=== PATIENT | female | born 1950 | race Caucasian/White ===

== ENCOUNTER 2017-05-07 07:17 | Emergency (ER) | payer MEDICARE ==
[~2017-05-07] VITALS: Ht 172.7 cm; Wt 71.0 kg
[2017-05-07 07:19] VITALS: BP 196/78; PULSE 84; RESP 16; TEMP 98.3; O2SAT 98
[2017-05-07 07:41] VITALS: BP_SYST 136; BP_SYST 145; BP_DIAS 66; BP_DIAS 73; RESP 12; RESP 14; RESP 18
[2017-05-07] MEDS ORDERED: CBD (07:46)
[2017-05-07] MEDS ORDERED: IMIP10 PO (07:46)
[2017-05-07] MEDS ORDERED: DULO1CAP2 PO (07:46)
[2017-05-07] MEDS ORDERED: QUIN5TAB6 PO (07:46)
[2017-05-07] MEDS ORDERED: SODIUM CHLOR 0.9% 1000 ML INJ 1,000 ML IV ONE (08:03)
[2017-05-07] MEDS ORDERED: ONDANSETRON HCL 4 MG/2 ML VIAL IVP ONE (08:15)
[2017-05-07] MEDS ORDERED: SODIUM CHLORIDE 0.9% FLUSH 10 ML FLUSH IVF PRN (08:15)
[2017-05-07] MEDS ORDERED: MECLIZINE HCL 25 MG TAB PO ONE (08:15)
[2017-05-07 08:52] LABS: BACTERIA, URINE RARE /hpf; BILIRUBIN, URINE NEG (NEG); BLOOD, URINE TRACE (NEG); GLUCOSE,URINE NEG (NEG); KETONE, URINE NEG (NEG); MUCUS URINE MOD /lpf (OCC); NITRITE,URINE NEG (NEG); SQUAMOUS EPITHELIAL CELL URINE 1 /hpf (0-5); URINE COLOR YELLOW (YELLW/STRAW); URINE LEUKOCYTE ESTERASE LARGE (NEG)
--- NOTE | 2017-05-07 08:55 | PD ---
HPI Chief Complaint: Medical Clearance Time Seen by Provider: 07:54 Travel History International Travel<30 days: No Contact w/Intl Traveler<30days: No Traveled to known affect area: No History of Present Illness HPI Patient is a 67 year old female who comes in complaining of dizziness. She says that she had an episode on when she was on a ladder in her RV. She says that she laid down and felt better. She says it happened again Sunday and Sunday. She says that today she woke and and "just didn't feel well." She says she can't explain why she wasn't feeling well, she just wasn't. She says currently, laying in the stretcher, she feels better. She says she has not noticed anything that makes her symptoms worse or better. She has not taken anything for her symptoms. She denies chest pain or SOB. She says that she took her blood pressure during these events and at one point it was low, but today it was high, 170/90. She says she was treated for a sinus infection by urgent care 2 weeks ago. She denies head injury or fevers. Severity is mild to moderate. PFSH Past Medical History Cardiovascular Problems: Yes Fibromyalgia: Yes Hypertension: Yes ?: Not Tubal Ligation: Yes Past Surgical History Gynecologic Surgery: Yes Social History Alcohol Use: Yes (socially ) Tobacco Use: No Substance Use: No Allergies-Medications (Allergen,Severity, Reaction): Coded Allergies: penicillin G (Verified Allergy, Intermediate, Rash, 05/07/17) Reported Meds & Prescriptions Reported Meds & Active Scripts Active Reported [Cbd ] Duloxetine DR (Duloxetine HCl) 30 Mg Capdr 30 Mg PO DAILY Imipramine HCL (Imipramine HCl) 10 Mg Tab 50 Mg PO HS Quinapril (Quinapril HCl) 5 Mg Tab 40 Mg PO BID Review of Systems Except as stated in HPI: all other systems reviewed are Neg General / Constitutional: No: Fever, Chills Eyes: No: Blurred Vision HENT: Positive: Lightheadedness, No: Headaches Cardiovascular: No: Chest Pain or Discomfort Respiratory: No: Shortness of Breath Gastrointestinal: Positive: Nausea, No: Vomiting, Abdominal Pain Genitourinary: No: Dysuria Musculoskeletal: No: Myalgias, Edema Skin: No Rash, No Change in Pigmentation Neurologic: Positive: Dizziness, No: Weakness Physical Exam Narrative GENERAL: Awake and alert, in no acute distress. SKIN: Focused skin assessment warm/dry. No wounds or signs of infection. HEAD: Atraumatic. Normocephalic. EYES: Pupils equal and round and reactive. No scleral icterus. EOMI. ENT: Mucous membranes pink and moist. NECK: Trachea midline. No JVD. CARDIOVASCULAR: Regular rate and rhythm. No murmur appreciated. RESPIRATORY: No accessory muscle use. Clear to auscultation. Breath sounds equal bilaterally. GASTROINTESTINAL: Abdomen soft, non-tender, nondistended. MUSCULOSKELETAL: No obvious deformities. No clubbing. No cyanosis. No edema. NEUROLOGICAL: Awake and alert. No obvious cranial nerve deficits. Motor grossly within normal limits. Normal speech. Normal cerebellar function. PSYCHIATRIC: Appropriate mood and affect; insight and judgment normal. Data Data Last Documented VS Vital Signs Date Time Temp Pulse Resp B/P (MAP) Pulse Ox O2 Delivery O2 Flow Rate FiO2 05/07/17 08:22 (89) 05/07/17 07:41 70 14 71 12 75 18 05/07/17 07:19 98.3 98 Orders Orders Complete Blood Count With Diff (05/07/17 08:03) Comprehensive Metabolic Panel (05/07/17 08:03) Troponin I (05/07/17 08:03) Act Partial Throm Time (Ptt) (05/07/17 08:03) Prothrombin Time / Inr (Pt) (05/07/17 08:03) Urinalysis - C+S If Indicated (05/07/17 08:03) Chest, Single Ap (05/07/17 08:03) Ct Brain W/O Iv Contrast(Rout) (05/07/17 08:03) Ecg Monitoring (05/07/17 08:03) Iv Access Insert/Monitor (05/07/17 08:03) Oximetry (05/07/17 08:03) Meclizine (Antivert) (05/07/17 08:15) Ondansetron Inj (Zofran Inj) (05/07/17 08:15) Sodium Chloride 0.9% Flush (Ns Flush) (05/07/17 08:15) Sodium Chlor 0.9% 1000 Ml Inj (Ns 1000 M (05/07/17 08:03) Urine Culture (05/07/17 08:25) Labs Laboratory Tests Test 05/07/17 08:20 05/07/17 08:25 White Blood Count 6.2 TH/MM3 Red Blood Count 4.29 MIL/MM3 Hemoglobin 13.8 GM/DL Hematocrit 39.1 % Mean Corpuscular Volume 91.0 FL Mean Corpuscular Hemoglobin 32.1 PG Mean Corpuscular Hemoglobin Concent 35.3 % Red Cell Distribution Width 12.8 % Platelet Count 247 TH/MM3 Mean Platelet Volume 7.2 FL Neutrophils (%) (Auto) 53.3 % Lymphocytes (%) (Auto) 37.3 % Monocytes (%) (Auto) 7.4 % Eosinophils (%) (Auto) 1.3 % Basophils (%) (Auto) 0.7 % Neutrophils # (Auto) 3.3 TH/MM3 Lymphocytes # (Auto) 2.3 TH/MM3 Monocytes # (Auto) 0.5 TH/MM3 Eosinophils # (Auto) 0.1 TH/MM3 Basophils # (Auto) 0.0 TH/MM3 CBC Comment DIFF FINAL Differential Comment Prothrombin Time 10.1 SEC Prothromb Time International Ratio 1.0 RATIO Activated Partial Thromboplast Time 24.0 SEC Blood Urea Nitrogen 29 MG/DL Creatinine 0.81 MG/DL Random Glucose 108 MG/DL Total Protein 6.6 GM/DL Albumin 3.5 GM/DL Calcium Level 8.9 MG/DL Alkaline Phosphatase 70 U/L Aspartate Amino Transf (AST/SGOT) 18 U/L Alanine Aminotransferase (ALT/SGPT) 22 U/L Total Bilirubin 0.3 MG/DL Sodium Level 142 MEQ/L Potassium Level 4.0 MEQ/L Chloride Level 109 MEQ/L Carbon Dioxide Level 25.3 MEQ/L Anion Gap 8 MEQ/L Estimat Glomerular Filtration Rate 70 ML/MIN Troponin I LESS THAN 0.02 NG/ML Urine Color YELLOW Urine Turbidity CLEAR Urine pH 6.0 Urine Specific [place] 1.015 Urine Protein NEG mg/dL Urine Glucose (UA) NEG mg/dL Urine Ketones NEG mg/dL Urine Occult Blood TRACE Urine Nitrite NEG Urine Bilirubin NEG Urine Urobilinogen LESS THAN 2.0 MG/DL Urine Leukocyte Esterase LARGE Urine RBC 1 /hpf Urine WBC 13 /hpf Urine Squamous Epithelial Cells 1 /hpf Urine Bacteria RARE /hpf Urine Mucus MOD /lpf Microscopic Urinalysis Comment CULTURE INDICATED MDM Medical Decision Making Medical Screen Exam Complete: Yes Emergency Medical Condition: Yes Interpretation(s) ECG shows NSR at 72, no ST elevation or depression, normal intervals Differential Diagnosis dehydration vs electrolyte abnormalities vs UTI vs vertigo Narrative Course Patient is a 67 year old female who comes in complaining of dizziness and "not feeling well." Exam shows no neurologic abnormalities. IV established, labs sent. Labs show evidence of dehydration with a BUN of 29 and Cr of 0.81. Urinalysis is positive for UTI. Patient given IVF, Zofran, Meclizine. She reports feeling better. CXR and head CT show no acute abnormalities. Last [address] 05/07/17802 Signed Impressions: Service Date/Time: Sunday, May 07, 2017 08:35 - CONCLUSION: 1. Negative noncontrast CT brain. Akash Mason MD Chest X-Ray 05/07/17802 Signed Impressions: Service Date/Time: Sunday, May 07, 2017 08:18 - CONCLUSION: The lungs are clear. Akash Mason MD Patient advised to increase her water intake. Given a prescription for Macrobid. Advised to follow up with a primary doctor. Advised to return to the ED as needed for any worsening symptoms. Diagnosis Primary Impression: UTI (urinary tract infection) Qualified Codes: N30.00 - Acute cystitis without hematuria Additional Impressions: Dehydration Dizziness Patient Instructions: Dizziness (ED), General Instructions, Urinary Tract Infection in Women (ED) Additional Instructions: Increase your water intake. Take all of your antibiotic. Follow-up with a primary care doctor. Return to the ED as needed for any worsening symptoms. Scripts Nitrofurantoin Monohydrate Macrocrystals (Macrobid) 100 Mg Capsule 100 MG PO BID for Infection for 5 Days, #10 CAP 0 Refills Prov: Jaye Wilburn MD 05/07/17 Disposition: 01 DISCHARGE HOME Condition: Stable Jaye Wilburn MD May 07, 2017 08:55
[2017-05-07 08:56] LABS: AUTOMATED NEUTROPHIL # 3.3 TH/MM3 (1.8-7.7); BASOPHIL % 0.7 % (0.0-2.0); EOSINOPHIL # 0.1 TH/MM3 (0-0.4); EOSINOPHIL % 1.3 % (0.0-4.0); HEMATOCRIT 39.1 % (35.0-46.0); HEMOGLOBIN 13.8 GM/DL (11.6-15.3); LYMPH % 37.3 % (9.0-44.0); LYMPHOCYTE # 2.3 TH/MM3 (1.0-4.8); MEAN CORPUSCULAR HEMOGLOBIN 32.1 PG (27.0-34.0); MEAN CORPUSCULAR HGB CONC 35.3 % (32.0-36.0); MEAN PLATELET VOLUME 7.2 FL (7.0-11.0); MONO % 7.4 % (0.0-8.0); MONOCYTE # 0.5 TH/MM3 (0-0.9); NEUT % 53.3 % (16.0-70.0); PLATELET COUNT 247 TH/MM3 (150-450); RED BLOOD COUNT 4.29 MIL/MM3 (4.00-5.30); RED CELL DISTRIBUTION WIDTH 12.8 % (11.6-17.2); WHITE BLOOD COUNT 6.2 TH/MM3 (4.0-11.0)
[2017-05-07 09:02] LABS: PROTHROMBIN TIME - PATIENT 10.1 SEC (9.8-11.6)
[2017-05-07 09:04] LABS: ALBUMIN 3.5 GM/DL (3.4-5.0); AST (GOT) 18 U/L (15-37); BICARBONATE 25.3 MEQ/L (21.0-32.0); BLOOD UREA NITROGEN 29 MG/DL (7-18); CALCIUM 8.9 MG/DL (8.5-10.1); CHLORIDE 109 MEQ/L (98-107); CREATININE 0.81 MG/DL (0.50-1.00); GLOMERULAR FILTRATION RATE 70 ML/MIN (>89); GLUCOSE,RANDOM 108 MG/DL (74-106); SODIUM (NA) 142 MEQ/L (136-145)
[2017-05-07 09:05] LABS: ALT (GPT) 22 U/L (10-53)
[2017-05-07 09:09] LABS: ALKALINE PHOSPHATASE 70 U/L (45-117); TOTAL BILIRUBIN ADULT 0.3 MG/DL (0.2-1.0); TOTAL PROTEIN 6.6 GM/DL (6.4-8.2); TROPONIN I LESS THAN 0.02 NG/ML (0.02-0.05)
--- NOTE | 2017-05-07 09:10 | RADRPT ---
EXAM DATE/TIME: 05/07/2017 08:18 [facility] COMPARISON: No previous studies available for comparison. INDICATIONS : Palpitations, vertigo, no chest pain, blood pressure problems MEDICAL HISTORY : Hypertension. SURGICAL HISTORY : None. ENCOUNTER: Initial ACUITY: 1 day PAIN SCORE: 0/10 LOCATION: Bilateral chest FINDINGS: A single view of the chest demonstrates the lungs to be symmetrically aerated without evidence of mas s, infiltrate or effusion. The cardiomediastinal contours are unremarkable. Osseous structures are intact. CONCLUSION: The lungs are clear. Akash Mason MD on May 07, 2017 at 9:09 Board Certified Radiologist. This report was verified electronically.
--- NOTE | 2017-05-07 09:12 | RADRPT ---
EXAM DATE/TIME: 05/07/2017 08:35 [facility] COMPARISON: No previous studies available for comparison. INDICATIONS : Dizziness RADIATION DOSE: 35.01 CTDIvol (mGy) MEDICAL HISTORY : Cardiovascular disease. Hypertension. SURGICAL HISTORY : None. ENCOUNTER: Initial ACUITY: 1 day PAIN SCALE: 2/10 LOCATION: Bilateral cranial TECHNIQUE: Multiple contiguous axial images were obtained of the head. Using automated exposure control and adj ustment of the mA and/or kV according to patient size, radiation dose was kept as low as reasonably a chievable to obtain optimal diagnostic quality images. DICOM format image data is available electro nically for review and comparison. FINDINGS: CEREBRUM: The ventricles are normal for age. No evidence of midline shift, mass lesion, hemorrhage or acute in farction. No extra-axial fluid collections are seen. POSTERIOR FOSSA: The cerebellum and brainstem are intact. The 4th ventricle is midline. The cerebellopontine angle i s unremarkable. EXTRACRANIAL: The visualized portion of the orbits is intact. SKULL: The calvaria is intact. No evidence of skull fracture. CONCLUSION: 1. Negative noncontrast CT brain. Akash Mason MD on May 07, 2017 at 9:09 Board Certified Radiologist. This report was verified electronically.
[2017-05-07] MEDS ORDERED: MACR100C2 PO (09:29)
--- NOTE | 2017-05-07 22:52 | EKG ---
Date Performed: 05/07/2017 Time Performed: 07:40:27 PTAGE: 67 years EKG: Sinus rhythm NONSPECIFIC T-WAVE ABNORMALITY BORDERLINE ECG NO PREVIOUS TRACING DOCTOR: Romulo Rosales Interpretating Date/Time 05/07/2017 22:48:35
== END 2017-05-07 09:38 | disposition home or self-care (01) ==
LOC: NEPE 07:17
DX: N30.00 Acute cystitis without hematuria (principal); E86.0 Dehydration; I10 Essential (primary) hypertension; I25.10 Atherosclerotic heart disease of native coronary artery without angina pectoris; M79.7 Fibromyalgia; R94.31 Abnormal electrocardiogram [ECG] [EKG]; Z88.0 Allergy status to penicillin; Z79.899 Other long term (current) drug therapy
CPT/HCPCS: 70450; 71045; 80053; 81001; 84484; 85025; 85610; 85730; 87086; 93005; 96361; 96374; 99285; J2405; J7030